=== PATIENT | female | born 1960 | race Caucasian/White ===

== ENCOUNTER 2020-05-15 08:07 | Outpatient (CLI) | payer BC | END 2020-05-15 08:08 | disposition home or self-care (01) | LOC: CSHWCC 08:07 | PROVIDERS: ATTEND Nurse Practitioner Family | DX: T81.89XD Other complications of procedures, not elsewhere classified, subsequent encounter (principal); E11.621 Type 2 diabetes mellitus with foot ulcer; T86.821 Skin graft (allograft) (autograft) failure; L97.509 Non-pressure chronic ulcer of other part of unspecified foot with unspecified severity; E11.69 Type 2 diabetes mellitus with other specified complication; M86.9 Osteomyelitis, unspecified; E11.22 Type 2 diabetes mellitus with diabetic chronic kidney disease; I12.9 Hypertensive chronic kidney disease with stage 1 through stage 4 chronic kidney disease, or unspecified chronic kidney disease; N18.9 Chronic kidney disease, unspecified; E11.40 Type 2 diabetes mellitus with diabetic neuropathy, unspecified; E11.65 Type 2 diabetes mellitus with hyperglycemia; Z89.411 Acquired absence of right great toe | CPT/HCPCS: 11042; 11045; 97605; 99213; G0463 ==

== ENCOUNTER 2020-05-29 10:07 | Outpatient (CLI) | payer BC | END 2020-05-29 10:08 | disposition home or self-care (01) | LOC: CSHWCC 10:07 | PROVIDERS: ATTEND Nurse Practitioner Family | DX: T81.89XD Other complications of procedures, not elsewhere classified, subsequent encounter (principal); T86.821 Skin graft (allograft) (autograft) failure; E11.621 Type 2 diabetes mellitus with foot ulcer; L97.509 Non-pressure chronic ulcer of other part of unspecified foot with unspecified severity; R60.0 Localized edema; E11.40 Type 2 diabetes mellitus with diabetic neuropathy, unspecified; E11.65 Type 2 diabetes mellitus with hyperglycemia; I12.9 Hypertensive chronic kidney disease with stage 1 through stage 4 chronic kidney disease, or unspecified chronic kidney disease; E11.22 Type 2 diabetes mellitus with diabetic chronic kidney disease; N18.9 Chronic kidney disease, unspecified; E11.69 Type 2 diabetes mellitus with other specified complication; M86.9 Osteomyelitis, unspecified; E66.01 Morbid (severe) obesity due to excess calories; Z89.411 Acquired absence of right great toe | CPT/HCPCS: 99213; G0463 ==

== ENCOUNTER 2020-06-18 11:44 | Outpatient (CLI) | payer BC | END 2020-06-18 11:45 | disposition home or self-care (01) | LOC: CSHRAD 11:44 | PROVIDERS: ATTEND Nurse Practitioner Family | DX: I10 Essential (primary) hypertension (principal) | CPT/HCPCS: 71046 ==

== ENCOUNTER 2020-06-22 11:15 | Outpatient (CLI) | payer BC | END 2020-06-22 11:16 | disposition home or self-care (01) | LOC: CSHWCC 11:15 | PROVIDERS: ATTEND Nurse Practitioner Family | DX: T81.89XD Other complications of procedures, not elsewhere classified, subsequent encounter (principal); E11.621 Type 2 diabetes mellitus with foot ulcer; L97.509 Non-pressure chronic ulcer of other part of unspecified foot with unspecified severity; R60.0 Localized edema; E66.01 Morbid (severe) obesity due to excess calories; I12.9 Hypertensive chronic kidney disease with stage 1 through stage 4 chronic kidney disease, or unspecified chronic kidney disease; N18.9 Chronic kidney disease, unspecified; T86.821 Skin graft (allograft) (autograft) failure; Z89.411 Acquired absence of right great toe | CPT/HCPCS: 99211; G0463 ==

== ENCOUNTER 2020-06-26 08:16 | Outpatient (CLI) | payer BC | END 2020-06-26 08:17 | disposition home or self-care (01) | LOC: CSHWCC 08:16 | PROVIDERS: ATTEND Nurse Practitioner Family | DX: T81.89XD Other complications of procedures, not elsewhere classified, subsequent encounter (principal); E11.621 Type 2 diabetes mellitus with foot ulcer; L97.509 Non-pressure chronic ulcer of other part of unspecified foot with unspecified severity; E11.40 Type 2 diabetes mellitus with diabetic neuropathy, unspecified; E11.65 Type 2 diabetes mellitus with hyperglycemia; E66.01 Morbid (severe) obesity due to excess calories; I12.9 Hypertensive chronic kidney disease with stage 1 through stage 4 chronic kidney disease, or unspecified chronic kidney disease; N18.9 Chronic kidney disease, unspecified; M86.9 Osteomyelitis, unspecified; T86.821 Skin graft (allograft) (autograft) failure; Z89.411 Acquired absence of right great toe | CPT/HCPCS: 11042; 11045; 97605; 99213; G0463 ==